=== PATIENT | male | born 2000 | race Caucasian/White ===

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

== ENCOUNTER 2022-03-03 12:26 | Emergency (ER) | payer OTHER ==
[~2022-03-03] VITALS: Ht 175.2 cm; Wt 81.6 kg
[2022-03-03] MEDS ORDERED: CELEXA40 MG PO (12:49)
[2022-03-03] MEDS ORDERED: BUSPAR15 MG PO (12:49)
== END 2022-03-03 15:36 | disposition home or self-care (01) ==
LOC: ED 12:26
DX: S16.1XXA Strain of muscle, fascia and tendon at neck level, initial encounter (principal); S09.90XA Unspecified injury of head, initial encounter; Z79.899 Other long term (current) drug therapy; V89.2XXA Person injured in unspecified motor-vehicle accident, traffic, initial encounter; Y93.89 Activity, other specified; Y92.89 Other specified places as the place of occurrence of the external cause; Y99.8 Other external cause status